=== PATIENT | male | born 1990 | race Caucasian/White ===

== ENCOUNTER 2021-05-13 17:35 | Outpatient (CLI) | payer BC, SELFPAY ==
[2021-05-13 17:38] VITALS: BP 142/89; PULSE 81; RESP 16; TEMP 36.8; O2SAT 100; BMI 20.3
[2021-05-13] MEDS: 0.9% Saline Lock 10 ML Syringe IV (17:39)
[2021-05-13 18:32] VITALS: BP 114/79; PULSE 73; RESP 16; TEMP 37.2; O2SAT 99
[2021-05-13 19:32] VITALS: BP 129/92; PULSE 79; RESP 16; TEMP 36.9; O2SAT 100
== END 2021-05-13 23:59 | disposition home or self-care (01) ==
LOC: MS3OUT 17:36 → MS3 17:36
PROVIDERS: PCP Family Medicine; Referring Provider Nurse Practitioner Adult Health; Visit Provider Nurse Practitioner Adult Health
DX: Z23 Encounter for immunization (principal); U07.1 COVID-19
CPT/HCPCS: J7050; M0243; A4216; Q0240

== ENCOUNTER → 2024-02-22 | Outpatient (CLI) | payer BC, SELFPAY ==
--- NOTE | 2024-02-22 08:10 | CYST_PTH ---
PATIENT: MIKHAIL SALEEM [facility]: [facility] U#:[id number] AGE/SX: 33/M ROOM: RE02/22/[address]: Dr. Jose Cha MD : 1990 BED: DIS: 02/22/2024 SPEC #: [id number] RECD: 02/22/24 15:11 STATUS: CROW REMartin #: [id number] STACEY: 02/22/24 08:[address]: Jose Cha DEPT: SURGICAL PATHOLOGY RECD BY: Dang Mejia ENTERED: 02/23/24 08:10 SP TYPE: Cyst OTHR DR: Dr. Balaji Hess MD Tissues: A - CYST B - CYST Procedures: Surgery Specimen Level III HEADER OPERATION: Bilateral excision pre auricular cyst PRE-OP DIAGNOSIS: Localized swelling, mass and lump, head TISSUE SUBMITTED: A- Left Pre-auricular cyst, B- Right pre-auricular cysy MICROSCOPIC DIAGNOSIS A. Left preauricular cyst, biopsy: Skin with mild dermal chronic inflammation and mild elastosis. No evidence of malignancy. B. Right preauricular cyst, biopsy: Fibrosis, chronic inflammation and benign histiocytic proliferation with foreign body giant cells. No evidence of malignancy. AM/mr 02/24/2024 COMMENT Case has been reviewed in consultation with Dr. Merrill who concurs with the above diagnosis. IDC:SJ MICROSCOPIC DESCRIPTION Slides are reviewed. GROSS DESCRIPTION A. Received in fixative is one container labeled with the patient's name and designated Left pre-auricular cyst. The specimen consists of a piece of chappell-white skin measuring 0.7 x 0.2 x 0.1cm. The specimen is inked and submitted entirely in one cassette. B. Received in fixative is one container labeled with the patient's name and designated Right pre-auricular cyst. The specimen consists of a piece of chappell-white skin measuring 1.0 x 0.5 x 0.2cm. The specimen is inked, serially sectioned and submitted entirely in one cassette. TC:3 SJ.mr 02/23/2024 CPT:11914
== END | disposition home or self-care (01) ==
LOC: LABSPEC 15:28
PROVIDERS: PCP Family Medicine; Referring Provider Otolaryngology; Visit Provider Otolaryngology
DX: L57.8 Other skin changes due to chronic exposure to nonionizing radiation (principal); L90.5 Scar conditions and fibrosis of skin
CPT/HCPCS: 88304

== ENCOUNTER 2024-04-04 14:26 | Emergency (ER) | payer BC, SELFPAY ==
[2024-04-04 14:27] VITALS: BP 146/109; PULSE 90; RESP 16; TEMP 36.8; O2SAT 97; BMI 20.5
[2024-04-04 16:00] VITALS: BP 138/97; PULSE 80; RESP 18; O2SAT 99
[2024-04-04 17:06] LABS: Absolute Lymphocyte Count 0.76 X10^3/uL (0.83-4.51); Absolute Neutrophil Count 3.8 X10^3/uL (2.0-7.7); Basophil# 0.05 X10^3/uL; Basophil% 0.9 % (0-1); Eosinophil# 0.22 X10^3/uL; Eosinophils% 4.1 % (0-5); Hematocrit 40.9 % (40-54); Hemoglobin 13.7 g/dL (13.0-16.5); Lymphocyte # 0.76 X10^3/ul (0.83-4.51); Lymphocyte % 14.1 % (19-41); Mean Corp Hgb Conc 33.5 g/dL (32-36); Mean Corpuscular Hgb 31.9 pg (27.0-32.0); Mean Corpuscular Volume 95.1 fL (80-94); Mean Platelet Vol. 8.3 fl (6.2-12.0); Monocyte# 0.51 X10^3/uL; Monocyte% 9.5 % (0-10); NRBC Flagged by Analyzer 0 % (0-5); Neutrophil # 3.82 X10^3/uL (2.7-7.7); Platelet Count 216 K/mm3 (150-450); RBC Distribution Width CV 12.5 % (11.6-14.6); RBC Distribution Width SD 43.5 fl (35.1-43.9); White Blood Count 5.4 K/mm3 (4.4-11.0)
[2024-04-04 17:17] LABS: ALB/GLOB Ratio 1.1 RATIO (0.9-2.4); AST(SGOT) 97 U/L (15-37); Alanine Aminotransfer ALT/SGPT 68 U/L (16-61); Albumin, Serum 3.9 g/dL (3.2-5.0); Alkaline Phosphatase 108 U/L (45-117); Anion Gap 7 (5-15); BUN 10 mg/dL (7-18); Chloride 107 mmol/L (98-107); EST Glomerular Filtration Rate 91 mL/min (>60); Est Glom Filt Rate - Afr Amer 110 mL/min (>60); Estimated Creatinine Clearance 88.58 ml/min; Globulin 3.4 g/dL (2.2-4.2); Glucose 92 mg/dL (74-106); Potassium 3.7 mmol/L (3.5-5.1); Protein, Total 7.3 g/dL (6.4-8.2); Sodium Level 140 mmol/L (136-145)
[2024-04-04 17:29] LABS: Bacteria 0 SEEN /hpf (None Seen); Mucous, Urine 0 SEEN /hpf (<or=2+); Red Blood Cells-Urine 0 SEEN /hpf (0-5)
[2024-04-04 17:41] LABS: Color, Urine Yellow (Yellow); Glucose, Dipstick Normal (Normal); Ketone-Dipstick Negative (Negative); Leukocyte Esterase-Dipstick 25 /ul (Negative); Nitrite-Dipstick Negative (Negative); Occult Blood-Urine Negative /ul (Negative); Protein-Dipstick Negative (Negative); Urine Bilirubin Dipstick Negative (Negative); Urine Clarity Clear (Clear); Urine Urobilinogen Normal (Normal)
--- NOTE | 2024-04-04 17:43 | CT_ITS ---
STUDY: CT ABDOMEN AND PELVIS WITH CONTRAST REASON FOR EXAM: Male, 33 years old. BRBPR, hx of UC RADIATION DOSAGE (If Supplied By Facility): CTDIvol = ( 6.06 ) mGy, DLP = ( 268.44 ) mGycm TECHNIQUE: Transaxial images were obtained from the dome of the diaphragm to the symphysis pubis without oral contrast. IV 75mL Isovue-300 was administered. Sagittal and coronal images were reconstructed. Individualized dose optimization techniques were used for this CT. COMPARISON: None. FINDINGS: The visualized lung bases are unremarkable. The visualized portions of the heart are within normal limits. Mild fatty infiltration liver without mass or bile duct old. Normal gallbladder and extrahepatic biliary system. Normal spleen. Normal pancreas. Normal bilateral adrenal glands. Normal right kidney. There are 3 tiny nonobstructing left renal calculi. There is a percutaneously placed catheter entering the upper abdomen in the right upper quadrant crossing the midline to the left and then curling back towards the right with the tip at the level of the gastroduodenal junction Normal visualized stomach. Mild nonspecific ileus. There are several loops of small bowel in the left upper abdomen demonstrating mild thickening of the folds which may be consistent with nonspecific enteritis. . The appendix is visualized and appears normal. There is a mild ascites noted within the gastrosplenic ligament Normal abdominal aorta. Normal inferior vena cava. Normal retroperitoneum. Incompletely distended mildly thick walled bladder likely of no significance. Normal abdominal wall. Normal osseous structures. CT/Abdomen/Pelvis W IV Cont ONLY IMPRESSION: Mild ileus and findings which may be consistent with nonspecific enteritis. No evidence for small bowel obstruction or other acute abnormality No sites of contrast extravasation within the bowel to suggest acute bleeding at this time however radionuclide tagged red blood cell study would be helpful for more definitive evaluation if indicated. Electronically Signed: Balaji Banks MD at 19:48 EST ,
[2024-04-04 18:00] VITALS: BP 128/108; PULSE 78; RESP 15; O2SAT 100
[2024-04-04 18:00] LABS: Squamous Epithelial Cells - UA 0-5 SEEN /hpf (0-5); White Blood Cells 0-5 SEEN /hpf (0-5)
--- NOTE | 2024-04-04 18:33 | EDS_ITS ---
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 He is presenting today with intermittent abdominal discomfort and worsening bright red blood per rectum. He states has been going on for couple weeks but is worse over the past few days. He states he has had frequent bowel movements. Yesterday had a pretty significant episode of bright red blood in his stool. He notes that yesterday his bowel movement filled up the bowl with blood. He states that the blood that seem to get a little darker. He does have Proctofoam and mesalamine suppositories at home but he does not like to use them. He states his coordinator at the [facility] told him he needed to come in to be evaluated. He denies any associated fever, nausea or vomiting. Denies any other complai nts or concerns reported at this time. PFSH PFS Home Medications ?Medication ?Instructions ?Recorded ?Last Taken ?Type cimetidine 200 mg tablet 200 mg PO DAILY 05/13/21 Unknown History amoxicillin 875 mg-potassium 875 mg PO Q12H #20 TABLETS 04/04/24 Unknown Rx clavulanate 125 mg tablet pramoxine 1 % topical foam 1 applic [place] TID #15 grams 04/04/24 Unknown Rx (Proctofoam) prednisone 50 mg tablet 50 mg PO DAILY #7 tabs 04/04/24 Unknown Rx Allergy/AdvReac Type Severity Reaction Status Date / Time promethazine (From Phenergan) Allergy Severe Anaphylaxis Verified 04/04/24 14:31 Social History Smoking Status: Never smoker [facility] ED Constitutional Constitutional ED: Reports other Details: Increased fatigue ; Denies chills or fever(s) Respiratory/Chest Respiratory/Chest: Denies cough Gastrointestinal Gastrointestinal: Reports abdominal pain and other Details: Bright red blood per rectum ; Denies nausea or vomiting Genitourinary Genitourinary ED: Denies dysuria or hematuria Musculoskeletal Musculoskeletal: Denies arthralgias or myalgias Integumentary Denies rash Neurologic Neurologic: Denies weakness Psychiatric Psychiatric: Denies anxiety Hematologic/Lymphatic Hematologic/Lymphatic: Denies easy bleeding or easy bruising Allergic/Immunologic Allergic/Immunologic ED: Reports other Details: History of stem cell transplant secondary to X-linked immunodeficiency EXAM Physical Exam Const Vital Signs: 04/04/24 14:27 04/04/24 16:00 04/04/24 18:00 Temperature 98.3 F Temperature Source Oral Pulse Rate 90 80 78 Respiratory Rate 16 18 15 Blood Pressure 146/109 H 138/97 H 128/108 H Blood Pressure Mean 121 110 114 Pulse Ox 97 99 100 Oxygen Delivery Method Room Air Room Air Room Air 04/04/24 21:56 Temperature 97.8 F Temperature Source Pulse Rate 68 Respiratory Rate 14 Blood Pressure 112/70 Blood Pressure Mean 84 Pulse Ox 100 Oxygen Delivery Method Positive well nourished and well developed General Appearance ED: well developed and NAD; Negative for pallor HEENT Reports moist mucous membranes Eyes PERRL Neck supple Resp normal respiratory effort and clear to auscultation bilaterally Cardio regular rate and regular rhythm GI non-tender and non-distended GI Narrative: No blood noted on rectal exam. No hemorrhoids appreciated. Brown stool. Auscultation: normoactive bowel sounds Palpation: soft; Negative for tender or guarding Extremity full ROM Neuro Sensorium / Orientation: alert, oriented to person, oriented to place and oriented to time Motor Exam: Negative for general weakness Psych mental status grossly normal and thought process normal Skin General Skin Exam: Negative for jaundice or pallor MDM MDM MDM Narrative Medical decision making narrative: Patient is evaluated for vague abdominal pain and bright red blood per rectum. Patient is well-appearing on exam. He has a pretty complex history including actually immunodeficiency and prior stem cell transplant. Patient overall is well-appearing. Differential includes gastroenteritis, diverticular bleeding, colitis flare, intra-abdominal abscess/infection, urinary tract infection, thrombocytopenia. Lab work largely normal. He has normal white blood cell count, normal differential and normal hemoglobin. Platelets are normal. CMP shows a mild transaminitis with an AST of 97 and ALT of 68. Urinalysis is normal. Rectal exam shows brown stool negative for occult blood. CT of the abdomen and pelvis shows mild ileus and findings which may be consistent with nonspecific enteritis. There is no evidence of obstruction or other acute abnormalities. I spoke with the nurse practitioner for his transplant team, Shanae. She states at this time patient is considered fully functioning from an immune system standpoint. I discussed the case with GI, Dr. Lang, who recommended Augmentin, prednisone and Proctofoam suppositories. Patient be given these prescriptions and at first dose of prednisone and Augmentin in the emergency room. Shanae, relayed the plan to the patient's transplant physician who was agreeable and had no further recommendations. Patient is given return precautions. Will be given outpatient GI follow-up. He is agreeable with this plan of care. Discharged home in stable condition. Lab Data Attestation: I reviewed the patient's lab results. Labs: Laboratory Results - last 24 hr 04/04/24 04/04/24 16:50 17:16 WBC 5.4 RBC 4.30 L Hgb 13.7 Hct 40.9 MCV 95.1 H MCH 31.9 MCHC 33.5 RDW Std Deviation 43.5 RDW Coeff of Maurilio 12.5 Plt Count 216 MPV 8.3 Immature Gran % (Auto) 0.400 Neut % (Auto) 71.0 H Lymph % (Auto) 14.1 L Steele % (Auto) 9.5 Eos % (Auto) 4.1 Baso % (Auto) 0.9 Absolute Neuts (auto) 3.8 Absolute Lymphs (auto) 0.76 L Nucleated RBC % 0 Sodium 140 Potassium 3.7 Chloride 107 Carbon Dioxide 25.0 Anion Gap 7 BUN 10 Creatinine 1.00 Estim Creat Clear Calc 88.58 Est GFR (MDRD) Af Amer 110 Est GFR (MDRD) Non-Af 91 BUN/Creatinine Ratio 10.0 Glucose 92 Calcium 9.0 Total Bilirubin 0.60 AST 97 H ALT 68 H Alkaline Phosphatase 108 Total Protein 7.3 Albumin 3.9 Globulin 3.4 Albumin/Globulin Ratio 1.1 Urine Color Yellow Urine Clarity Clear Urine pH 7.0 Ur Specific [place] 1.010 Urine Protein Negative Urine Glucose (UA) Normal Urine Ketones Negative Urine Occult Blood Negative Urine Nitrite Negative Urine Bilirubin Negative Urine Urobilinogen Normal Ur Leukocyte Esterase 25 H Urine RBC 0 SEEN Urine WBC 0-5 SEEN Ur Squamous Epith Cells 0-5 SEEN Urine Bacteria 0 SEEN Urine Mucus 0 SEEN Radiography Diagnostic Testing: Clinical Impression(s) from Imaging Studies Abdomen/Pelvis CT 04/04/24 17:43 IMPRESSION: Mild ileus and findings which may be consistent with nonspecific enteritis. No evidence for small bowel obstruction or other acute abnormality No sites of contrast extravasation within the bowel to suggest acute bleeding at this time however radionuclide tagged red blood cell study would be helpful for more definitive evaluation if indicated. Electronically Signed: Balaji Banks MD at 19:48 EST Reading Location ID and State: [facility] / [place] Tel , Service support , Discharge Plan Triage Chief Complaint: GI Bleed ED Provider: Anaid Hurtado Dx/Rx/DC Orders Clinical Impression: BRBPR (bright red blood per rectum), History of ulcerative colitis, Ileus, Enteritis Instructions: Ileus, ED Lower GI Bleeding (Stable), ED Ulcerative Colitis Prescriptions: New prednisone 50 mg tablet 50 mg PO DAILY Qty: 7 0RF amoxicillin-pot clavulanate 875-125 mg tablet 875 mg PO Q12H Qty: 20 0RF pramoxine [Proctofoam] 1 % foam 1 applic [place] TID Qty: 15 0RF No Action cimetidine 200 mg Tablet 200 mg PO DAILY Primary Care Provider: Balaji Hess Referrals: Balaji Hess MD [Primary Care Provider] - FriendArnav DO [Med Staff - Active Staff] - As soon as possible Activity Restrictions/Additional Instructions: Your CT showed an ileus which is a slowing of the bowels and some nonspecific inflammation called enteritis. Will treat you as an ulcer colitis flare with Proctofoam, antibiotics and steroids. I did discuss this with her GI doctor as well as the transplant team. If you feel you are getting worse, develop a fever, worsening pain or other concerns please return to the emergency room. Print Language: Urdu Disposition Disposition: Home, Self Care Discharge Date/Time: 04/04/24 21:57
[2024-04-04] MEDS: Amox/Clavulanate 875 MG Tablet PO (21:54)
[2024-04-04] MEDS: predniSONE 20 MG Tablet 60 MG PO (21:54)
[2024-04-04 21:56] VITALS: BP 112/70; PULSE 68; RESP 14; TEMP 36.6; O2SAT 100
== END 2024-04-04 21:57 | disposition home or self-care (01) ==
PROVIDERS: Emergency Provider Emergency Medicine; PCP Family Medicine; Visit Provider Emergency Medicine
DX: K62.5 Hemorrhage of anus and rectum (principal); Z94.84 Stem cells transplant status; K51.90 Ulcerative colitis, unspecified, without complications
CPT/HCPCS: 74177; 80053; 81001; 82274; 85025; 99284; Q9967